=== PATIENT | male | born 1975 | race Caucasian/White ===

== ENCOUNTER 2019-05-05 10:10 | Emergency (ER) | payer SELFPAY ==
[~2019-05-05] VITALS: Ht 172.7 cm; Wt 85.7 kg
[~2019-05-05 10:10] MED LIST: AMPI500C9 PO; DOCU-144 PO; POLY17PO6 PO
[2019-05-05 10:28] VITALS: Ht 172.7 cm; Wt 85.7 kg
[2019-05-05] MEDS ORDERED: SOD CHLORIDE 0.9% 1,000 ML IV STA (12:54)
[2019-05-05] MEDS ORDERED: KETOROLAC 15 MG INJ IV STA (12:54)
[2019-05-05 14:45] VITALS: BP 121/83; PULSE 71; RESP 14
== END 2019-05-05 15:15 | disposition home or self-care (01) ==
LOC: E/R 10:10
DX: K59.01 Slow transit constipation (principal); Z87.891 Personal history of nicotine dependence
CPT/HCPCS: 36415; 80053; 81001; 83690; 85025; 96361; 96374; 99284; J1885; J7030